=== PATIENT | female | born 1970 | race Caucasian/White ===

== ENCOUNTER 2017-07-05 06:43 | Day surgery (SDC) | payer SELFPAY ==
[2017-06-22 13:07] VITALS: BMI 25.1
[2017-07-05] MEDS ORDERED: BUPIVACAINE HCL/PF 2.5 MG/ML - 30 ML VIAL IJ ONE (07:33)
[2017-07-05] MEDS ORDERED: BUPIVACAINE HCL 0.25% 125 MG/50 ML VIAL ONE (07:35)
[2017-07-05] MEDS ORDERED: LIDOCAINE 1%/EPI 1:100000 (20 ML MULTI DOSE VIAL) ONE (07:35)
[2017-07-05] MEDS ORDERED: ceFAZolin SODIUM 1 GM VIAL ONE ×4 (07:37→16:41)
[2017-07-05] MEDS ORDERED: GENTAMICIN SO4 80 MG/2 ML VIAL ONE (07:37)
[2017-07-05] MEDS ORDERED: fentaNYL CITRATE 250 MCG/5 ML VIAL ONE ×3 (07:57→13:49)
[2017-07-05] MEDS ORDERED: PROPOFOL 20 ML ONE ×7 (07:57→13:50)
[2017-07-05] MEDS ORDERED: ROCURONIUM BROMIDE 50 MG/5 ML VIAL ONE ×3 (07:57→13:59)
[2017-07-05] MEDS ORDERED: MIDAZOLAM HCL 2 MG/2 ML SINGLE DOSE VIAL ONE (07:58)
[2017-07-05] MEDS ORDERED: LIDOCAINE HCL 2% JELLY (5 ML/TUBE) ONE (08:01)
[2017-07-05] MEDS ORDERED: ONDANSETRON 4 MG/2 ML VIAL ONE (08:01)
[2017-07-05] MEDS ORDERED: DEXAMETHASONE SOD PHOSPHATE 4 MG/1 ML VIAL ONE (08:01)
[2017-07-05] MEDS ORDERED: LIDOCAINE HCL/PF 2% SDV 5ML VIAL ONE (08:01)
[2017-07-05] MEDS ORDERED: HALOPERIDOL LACTATE 5 MG/ML ONE (08:05)
[2017-07-05] MEDS ORDERED: ALBUTEROL SO4 18 GM HFA INHALER IH ONE (08:27)
[2017-07-05] MEDS ORDERED: ePHEDrine SULFATE 50 MG/1 ML AMPULE ONE ×2 (09:08→13:43)
[2017-07-05] MEDS ORDERED: HYDROmorphone HCL/PF 1 MG/ML VIAL (FOR PYXIS CHARGING ONLY) ONE (14:41)
[2017-07-05] MEDS ORDERED: NEOSTIGMINE METHYLSULFATE 0.5 MG/ML - 10 ML MDV ONE (16:04)
[2017-07-05] MEDS ORDERED: GLYCOPYRROLATE 0.2 MG/1 ML VIAL ONE (16:05)
[2017-07-05] MEDS ORDERED: ESMOLOL HCL 100,000 MCG/10 ML VIAL ONE (16:16)
[2017-07-05] MEDS ORDERED: PROMETHAZINE HCL 25 MG/1 ML VIAL IVPUSH PRN (17:29)
[2017-07-05] MEDS ORDERED: oxyCODONE HCL 5 MG TABLET PO PRN ×2 (17:29)
[2017-07-05] MEDS ORDERED: ONDANSETRON 4 MG/2 ML VIAL IVPUSH PRN (17:29)
[2017-07-05] MEDS ORDERED: LACTATED RINGERS SOLUTION 1,000 ML IV SCH (17:30)
[2017-07-05] MEDS ORDERED: oxyCODONE HCL 5 MG TABLET ONE ×2 (18:50→19:17)
[2017-07-05] MEDS ORDERED: ACETAMINOPHEN INJECTION 100 ML IVPB ONE (19:37)
[2017-07-05] MEDS ORDERED: ACETAMINOPHEN 1000 MG/100 ML VIAL (NON FORMULARY) IVPB ONE (19:40)
[2017-07-05 21:21] VITALS: BP 98/60; PULSE 90; TEMP 98.4
--- NOTE | 2017-07-07 15:26 | PATH ---
Surgical Pathology Report Patient Name: LÓPEZ CLAUDIO [facility]. Rec. #: [id number] /Age/Gender: 1970 (Age: 46) / F Account: [id number] Location: [facility] AMBULATORY Taken: 07/05/2017 Received: 07/05/2017 Reported: 07/07/2017 Physicians: Cora Gutierrez M.D. Specimen(s) Received A: LEFT BREAST IMPLANT B: RIGHT BREAST IMPLANT C: LEFT BREAST SKIN AND TISSUE D: RIGHT BREAST SKIN AND TISSUE Clinical History Cosmetic Final Diagnosis A. BREAST IMPLANT, LEFT, REMOVAL: BREAST PROSTHESIS. MACROSCOPIC DIAGNOSIS. B. BREAST IMPLANT, RIGHT, REMOVAL: BREAST PROSTHESIS. MACROSCOPIC DIAGNOSIS. C. BREAST, LEFT, SKIN AND TISSUE, EXCISION: BENIGN BREAST TISSUE WITH FIBROCYSTIC CHANGES INCLUDING STROMAL FIBROSIS, MICROCYSTS, AND FOCAL USUAL DUCTAL HYPERPLASIA. BENIGN SKIN WITH MILD CHRONIC INFLAMMATION AND HISTIOCYTIC PROLIFERATION. D. BREAST, RIGHT, SKIN AND TISSUE, EXCISION: BENIGN BREAST TISSUE WITH FIBROCYSTIC CHANGES INCLUDING STROMAL FIBROSIS, MICROCYSTS, USUAL DUCTAL HYPERPLASIA, COLUMNAR CELL CHANGE, AND DUCT ECTASIA. SKIN WITHOUT SIGNIFICANT PATHOLOGIC FINDINGS. Electronically Signed Erica Scott M.D. Gross Description A. Received fresh labeled "left breast implant," is a 12 cm in diameter x 2.5 cm in depth clear, rubbery breast implant. No soft tissue is present. No sections are submitted, gross only. B. Received fresh labeled "right breast implant," is a 12 cm in diameter x 2.5 cm in depth clear, rubbery breast implant. No soft tissue is present. No sections are submitted, gross only. C. Received in formalin labeled "left breast skin and tissue," is a 137 g, 13.0 x 9.5 x 4.0 cm aggregate of multiple unoriented portions of fibroadipose tissue and wolf, unremarkable skin. Sectioning reveals abundant dense white fibrous tissue. No definitive masses are identified. Sound Cutter sections are submitted in 5 cassettes. D. Received in formalin labeled "right breast skin and tissue," is a 131 g, 10.0 x 10.0 x 3.8 cm aggregate of multiple unoriented portions of fibroadipose tissue and wolf, unremarkable skin. Sectioning reveals abundant dense white fibrous tissue. No definitive masses are identified. Sound Cutter sections are submitted in 5 cassettes. DL/07/06/2017 saudi/07/06/2017
== END 2017-07-05 21:10 | disposition home or self-care (01) ==
LOC: FASU 06:43
PROVIDERS: ATTEND Surgery
PROC: 0H0V0JZ Alteration of Bilateral Breast with Synthetic Substitute, Open Approach (ICD-10-PCS; principal; 2017-07-05 09:10)
DX: Z41.1 Encounter for cosmetic surgery (principal)
CPT/HCPCS: 84703; 88300-TC; 88304-TC; 94760; J0131